=== PATIENT | male | born 1985 ===

== ENCOUNTER 2019-08-25 08:18 | Emergency (ER) | payer SELFPAY ==
[2019-08-25 08:26] VITALS: BP 129/77
[2019-08-25] MEDS ORDERED: TETANUS,DIPH,PERTUSS(ACELL) VACCINE 0.5 ML SYRINGE IM ONE (08:39)
[2019-08-25] MEDS ORDERED: ceFAZolin 1 GM VIAL IM ONE (08:39)
[2019-08-25] MEDS ORDERED: HYDROcodone/ACETAMINOPHEN 7.5-325MG TAB PO ONE (08:40)
[2019-08-25] MEDS ORDERED: LIDOCAINE (1%) 10 MG/1 ML VIAL 20 ML MDV INFILTRATI ONE (08:40)
--- NOTE | 2019-08-25 09:19 | Emergency Department Report ---
- General Chief Complaint: Wound/Laceration Stated Complaint: LFT THUMB LAC/PAIN Time Seen by Provider: 08/25/19 08:36 Source: patient Mode of arrival: Ambulatory Limitations: Language Barrier - History of Present Illness Initial Comments: 34 yo M presents to ED after sustaing laceration to left thumb with a razor blade while at work. Tetanus not up to date. -: hour(s) (1) Extremity Location: Left: Hand Place: work Patient Tetanus UTD: No Context: accidental Associated Symptoms: pain Treatments Prior to Arrival: bandage - Related Data Previous Rx's Medication Instructions Recorded Last Taken Type HYDROcodone/APAP 5-325 [Mcintosh 1 each PO Q6HR PRN #7 tablet 08/25/19 Unknown Rx 5/325] Naproxen [Naprosyn] 500 mg PO BID #20 tablet 08/25/19 Unknown Rx cephALEXin [Keflex] 500 mg PO Q12HR 5 Days #10 cap 08/25/19 Unknown Rx Allergies Allergy/AdvReac Type Severity Reaction Status Date / Time No Known Allergies Allergy Verified 08/25/19 10:20 ED Review of Systems ROS: Stated complaint: LFT THUMB LAC/PAIN Other details as noted in HPI Comment: All other systems reviewed and negative Musculoskeletal: as per HPI Neurological: paresthesias ED Past Medical Hx - Past Medical History Previous Medical History?: No - Surgical History Past Surgical History?: No - Social History Smoking Status: Never Smoker Substance Use Type: Alcohol - Medications Home Medications: Home Medications Medication Instructions Recorded Confirmed Last Taken Type HYDROcodone/APAP 5-325 [Mcintosh 1 each PO Q6HR PRN #7 tablet 08/25/19 Unknown Rx 5/325] Naproxen [Naprosyn] 500 mg PO BID #20 tablet 08/25/19 Unknown Rx cephALEXin [Keflex] 500 mg PO Q12HR 5 Days #10 cap 08/25/19 Unknown Rx ED Physical Exam - General Limitations: Language Barrier General appearance: alert, in no apparent distress - Head Head exam: Present: atraumatic, normocephalic - Eye Eye exam: Present: normal appearance - ENT ENT exam: Present: mucous membranes moist - Neck Neck exam: Present: normal inspection - Respiratory Respiratory exam: Present: normal lung sounds bilaterally. Absent: respiratory distress - Cardiovascular Cardiovascular Exam: Present: regular rate, normal rhythm - GI/Abdominal GI/Abdominal exam: Absent: distended - Extremities Exam Extremities exam: Present: other (diagonal 3 cm laceration to the radial aspect of the left thumb going thru nailbed to fingertip; pt able to flex/ extend all joints of the thumb) ED Course Vital Signs 08/25/19 08:24 Temperature 97.9 F Pulse Rate 69 Respiratory 13 Rate Blood Pressure 129/77 [Right] O2 Sat by Pulse 98 Oximetry - Laceration /Wound Repair Left Finger Wound Location: upper extremity (left thumb) Wound Length (cm): 3 Wound's Depth, Shape: into muscle, linear, flap, nail-avulsed (nail is lacerated) Irrigated w/ Saline (ccs): 500 Betadine Prep?: Yes Anesthesia: 1% Lidocaine Volume Anesthetic (ccs): 3 Wound Debrided: minimal Wound Repaired With: sutures Suture Size/Type: 5:0, proline Number of Sutures: 5 Layer Closure?: No Sterile Dressing Applied?: Yes ED Medical Decision Making - Radiology Data Radiology results: report reviewed, image reviewed - Medical Decision Making Laceration repaired. Finger splint placed. Outpt f/u advised. Return precautions given. - Differential Diagnosis laceration, fracture, tendon injury Critical care attestation.: If time is entered above; I have spent that time in minutes in the direct care of this critically ill patient, excluding procedure time. ED Disposition Clinical Impression: Laceration of left thumb with damage to nail Disposition: -01 TO HOME OR SELFCARE Is pt being admited?: No Condition: Stable Instructions: Suture Care (ED), Laceration (ED), Finger Laceration (ED) Additional Instructions: Please follow up with orthopedic surgeon. Sutures need to be removed in approximately 10 days. Prescriptions: cephALEXin [Keflex] 500 mg PO Q12HR 5 Days #10 cap Naproxen [Naprosyn] 500 mg PO BID #20 tablet HYDROcodone/APAP 5-325 [Mcintosh 5/325] 1 each PO Q6HR PRN #7 tablet PRN Reason: Pain Referrals: CHRIST HARRIS MD [Staff Physician] - 3-5 Days Time of Disposition: 10:43
--- NOTE | 2019-08-25 09:48 | XRay Report ---
LEFT FINGERS 3 VIEWS INDICATION: thumb laceration. COMPARISON: None. IMPRESSION: Normal bone mineralization. No acute osseous injury or joint pathology is identified. A punctate radiodensity is identified in one of the views adjacent to the first metacarpophalangeal toño int which could represent a tiny soft tissue foreign body. Please correlate with the image. Signer Name: Coy Issa Jr, MD Signed: 08/25/2019 9:44 AM Workstation Name: [id number]
[2019-08-25] MEDS ORDERED: SODIUM CHLORIDE IRRI 500 ML 500 ML IR ONE (10:08)
== END 2019-08-25 11:35 | disposition home or self-care (01) ==
LOC: ED 08:18
DX: S61.112A Laceration without foreign body of left thumb with damage to nail, initial encounter (principal); F10.10 Alcohol abuse, uncomplicated; Z79.899 Other long term (current) drug therapy; W26.8XXA Contact with other sharp object(s), not elsewhere classified, initial encounter; Y93.89 Activity, other specified; Y92.89 Other specified places as the place of occurrence of the external cause; Y99.8 Other external cause status
CPT/HCPCS: 12002; 73140; 90471; 90715; 96372; 99283; J0690